=== PATIENT | female | born 1990 | race Caucasian/White ===

== ENCOUNTER 2021-11-17 11:32 | Emergency (ER) | payer SELFPAY ==
[2021-11-17] MEDS ORDERED: Sodium Chloride 0.9% 1,000 ML IV SCH (13:15)
[2021-11-17] MEDS ORDERED: Sodium Chloride 0.9% 10 ML Syringe FLUSH PRN (13:15)
[2021-11-17] MEDS ORDERED: GI Cocktail Oral Solution 30 ML PO ONE (13:17)
[2021-11-17 13:51] LABS: CHLORIDE,CL 100 mmol/L (98-107); SODIUM,NA 142 mmol/L (136-145)
[2021-11-17 13:52] LABS: ANION GAP 15.1 mmol/L (5-15); ESTIMATED GFR 88 mL/min (>=60)
== END 2021-11-17 15:07 | disposition home or self-care (01) ==
LOC: VM.ED 11:32
DX: N39.0 Urinary tract infection, site not specified (principal); K21.00 Gastro-esophageal reflux disease with esophagitis, without bleeding; E87.6 Hypokalemia
CPT/HCPCS: 80053; 81001; 81025; 85025; 87086; 96360; 99284; 99284-25; A9270-GY; J7030

== ENCOUNTER 2022-05-18 15:43 | Emergency (ER) | payer BC ==
[2022-05-18] MEDS ORDERED: Take Home: Sulfamethoxazole/Trimethoprim 800-160 MG Tab, 6 Tab Pack PO ONE (16:04)
== END 2022-05-18 16:17 | disposition home or self-care (01) ==
LOC: VM.ED 15:43
DX: N39.0 Urinary tract infection, site not specified (principal)
CPT/HCPCS: 81000; 81025; 87086; 99283; 99284; A9270-GY

== ENCOUNTER 2022-07-07 22:23 | Emergency (ER) | payer BC ==
[2022-07-07] MEDS ORDERED: Prochlorperazine 10 MG/2 ML SDV IM ONE (22:45)
[2022-07-07] MEDS ORDERED: Ketorolac 30 MG/ML SDV IM ONE (22:45)
[2022-07-07] MEDS ORDERED: diphenhydrAMINE 50 MG/ML SDV IM ONE (22:46)
[2022-07-07 23:46] LABS: CHLORIDE,CL 104 mmol/L (98-107); SODIUM,NA 141 mmol/L (136-145)
[2022-07-07] MEDS ORDERED: Sodium Chloride 0.9% 10 ML Syringe FLUSH PRN (23:46)
[2022-07-07] MEDS ORDERED: Ketamine 200 MG/20 ML MDV IVPUSH ONE (23:47)
[2022-07-07 23:48] LABS: ANION GAP 16.1 mmol/L (5-15); ESTIMATED GFR 78 mL/min (>=60)
== END 2022-07-08 00:47 | disposition home or self-care (01) ==
LOC: VM.ED 22:23
DX: R51.9 Headache, unspecified (principal)
CPT/HCPCS: 36415; 70450; 80053; 84443; 85025; 86140; 96372; 99284; J0780; J1200; J1885; J3490

== ENCOUNTER 2023-01-10 19:23 | Emergency (ER) | payer BC | END 2023-01-10 20:48 | disposition home or self-care (01) | LOC: VM.ED 19:23 | DX: S93.601A Unspecified sprain of right foot, initial encounter (principal); X50.1XXA Overexertion from prolonged static or awkward postures, initial encounter | CPT/HCPCS: 73630-RT; 99283 ==